=== PATIENT | male | born 1955 | race Caucasian/White ===

== ENCOUNTER 2021-10-13 17:11 | Inpatient (IN) | payer MEDICARE, MEDICAID, SELFPAY ==
--- NOTE | 2020-10-18 21:00 | NUR ---
PATIENT ALERT HAVE BM WE CHANGED THE BED AND CLEAN THE PATIENT ALONG WITH DRESSING AT THE SACRUM WOUND LOOKS HEALING ALL READY ALSO WE APPLY THE MED VITALS SIGNS IN NORMAL LIMITS //DiCaprioRN
[~2021-10-13] VITALS: Ht 167.6 cm; Wt 64.0 kg
[2021-10-13] MEDS: NACL 0.9% 1,000 ML IV SCH (00:05)
[2021-10-13] MEDS: FLUCONAZOLE 200 MG/NS PREMIX 100 ML IV SCH (00:30)
[2021-10-13 17:13] VITALS: BP 43/16
[2021-10-13] MEDS ORDERED: NOREPINEPHRINE 4 MG/4 ML VIAL IV ONE ×2 (17:13→20:20)
[2021-10-13] MEDS ORDERED: NOREPINEPHRINE 4 MG in DEXTROSE 5% 250 ML IV ONE (17:15)
[2021-10-13] MEDS ORDERED: cefTRIAXone 1,000 MG in DEXT 5% MINI-BAG PLUS 50 ML IV ONE (17:15)
[2021-10-13] MEDS ORDERED: NACL 0.9% 1,000 ML IV SCH (17:15)
--- NOTE | 2021-10-13 17:30 | NUR ---
[place] [facility] [place]. on arrival pt trach to vent being bagged bvm. breathing agonal. skin cold and dry. bp in 60s received 2 push dose epis in field cryptanalyst. io to bilateral legs, iv to right thumb #[id number].
--- NOTE | 2021-10-13 17:35 | NUR ---
PT AMBULANCE GURNEY TO ER BED 3 VIA DRAW SHEET AND PLACED ON V/S MONITOR
--- NOTE | 2021-10-13 17:51 | NUR ---
CENTRAL LINE SET UP AT BED SIDE ERMD NOTIFIED.
[2021-10-13 18:00] VITALS: BP 60/28
--- NOTE | 2021-10-13 18:09 | NUR ---
dr thompson at bedside for central line placement.
[2021-10-13 18:21] LABS: WHITE BLOOD COUNT (AUTO) 22.7 K/uL (4.8-10.8)
[2021-10-13] MEDS ORDERED: cefTRIAXone 1,000 MG VIAL ONE (18:30)
[2021-10-13] MEDS: NOREPINEPHRINE 8 MG in DEXTROSE 5% 250 ML IV PRN ×2 (18:37→23:40)
--- NOTE | 2021-10-13 18:43 | NUR ---
right femoral triple lumen central line placed by dr jay martinez to use by .
[2021-10-13 18:47] VITALS: BP 87/45
[2021-10-13 18:53] LABS: ALBUMIN 1.9 g/dL (3.4-5.0); ANION GAP 10.4 (8-16); CARBON DIOXIDE 33.5 mmol/L (21-32); CREATININE 0.6 mg/dL (0.6-1.3); POTASSIUM 4.9 mmol/L (3.5-5.1)
[2021-10-13 19:07] LABS: TOTAL BILIRUBIN 0.4 mg/dL (0.0-1.0)
[2021-10-13] MEDS ORDERED: NACL 0.9% 1,000 ML IV ONE ×2 (19:10→19:20)
[2021-10-13 19:19] LABS: HEMATOCRIT 25.5 % (36-52); HEMOGLOBIN 8.3 g/dL (12.0-18.0); MEAN CORPUSCULAR HEMOGLOBIN 32 pg (27-31); MEAN CORPUSCULAR HGB CONC 33 g/dL (33-37); MEAN CORPUSCULAR VOLUME 97.6 fL (80-94); PLATELET COUNT (AUTO) 399 K/uL (140-450); RED BLOOD CELL COUNT(AUTO) 2.61 MIL/uL (4.20-6.10)
--- NOTE | 2021-10-13 19:20 | NUR ---
report given to deondre WOODS
[2021-10-13] MEDS ORDERED: VASOPRESSIN 20 UNITS/ML VIAL ONE (19:23)
[2021-10-13] MEDS: VASOPRESSIN 20 UNITS in NACL 0.9% 250 ML IV SCH (19:36)
[2021-10-13 19:40] LABS: LYMPHOCYTES % (MANUAL) 2 % (20-46); METAMYELOCYTES % 1 % (0-0); MONOCYTES % (MANUAL) 3 % (5-12); MYELOCYTES % 1 % (0-0)
--- NOTE | 2021-10-13 19:46 | NUR ---
REPORT RECEIVED FROM PEGGY REDMOND FOR CONTINUITY OF PT CARE AT THIS TIME.
--- NOTE | 2021-10-13 19:50 | NUR ---
PT LAYING SUPINE IN BED W HOB ELEVATED. BED LOCKED IN LOWEST POSITION W X2 SIDERAILS UP FOR PT SAFETY. PT EYES CLOSED, GCS 4, PT TRACH TO VENT W SETTINGS OF A/C PV, 100% FiO2, 20RR, PEEP, 5, PT VSS ON LEVO AT 30MCG/MIN, AND VASSOPRESSIN AT 0.01UNITS/MIN. PT HAS G-TUBE AND NJ CATH DRAINING TO GRAVITY. IV ACCES TO R HAND, HAS A R FEM LINE, BL IOs. CONNECTED TO MONITOR. WILL CONTINUE TO MONITOR.
[2021-10-13 20:14] LABS: BILIRUBIN,URINE NEGATIVE (NEGATIVE); BLOOD, URINE 3+ (NEGATIVE); COLOR,URINE YELLOW (YELLOW); LEUKOCYTE ESTERASE ,URINE 1+ (NEGATIVE); NITRITE, URINE NEGATIVE (NEGATIVE); PH,URINE 7.5 (5.0-9.0); UGLUCOSE NEGATIVE (NEGATIVE)
[2021-10-13 20:33] LABS: APPEARANCE,URINE HAZY (CLEAR)
[2021-10-13 20:46] LABS: RBC,URINE >100 /HPF (0-5); YEAST,URINE Many /HPF (None Seen)
--- NOTE | 2021-10-13 21:32 | NUR ---
PT FAMILY AT BEDSIDE.
[2021-10-13] MEDS ORDERED: MAGNESIUM OXIDE 400 MG TAB PO PRN (21:45)
[2021-10-13] MEDS ORDERED: POTASSIUM CHLORIDE 10 MEQ TABER PO PRN (21:45)
[2021-10-13] MEDS ORDERED: HYDROcodone/APAP 5/325 MG 1 TAB TAB PO PRN (21:45)
[2021-10-13] MEDS ORDERED: ONDANSETRON 4 MG/2 ML VIAL IVP PRN (21:45)
[2021-10-13] MEDS ORDERED: ACETAMINOPHEN 325 MG TAB PO PRN (21:45)
[2021-10-13] MEDS ORDERED: LISI-486 GT (21:54)
[2021-10-13] MEDS ORDERED: ASPI-1822 GT (21:54)
[2021-10-13] MEDS ORDERED: ASCO500T95 GT (21:54)
[2021-10-13] MEDS ORDERED: MULT-1328 GT (21:54)
[2021-10-13] MEDS ORDERED: LOV40I SUBQ (21:54)
[2021-10-13] MEDS ORDERED: DOCU-299 GT (21:54)
[2021-10-13] MEDS ORDERED: METO25TE2 GT (21:54)
[2021-10-13] MEDS ORDERED: [UNRECOGNIZED DRUG - OTHER] (21:54)
[2021-10-13] MEDS ORDERED: HYDR-4004 GT (21:54)
[2021-10-13] MEDS ORDERED: OMEP20EC11 GT (21:54)
[2021-10-13] MEDS ORDERED: PROSTAT GT (21:54)
[2021-10-13] MEDS ORDERED: INSU-1163 SQ (21:58)
[2021-10-13] MEDS ORDERED: VANCOMYCIN 1,000 MG in DEXTROSE 5% 250 ML IV ONE (22:35)
[2021-10-13] MEDS ORDERED: MAG SULF 2000 MG/WATER PREMIX 50 ML IV ONE (22:35)
--- NOTE | 2021-10-13 22:46 | NUR ---
ACCOMPANIED PT TO CT AND BACK
--- NOTE | 2021-10-13 23:06 | NUR ---
PT TRANSPORTED TO CT AND BACK TO ED3 W/ NO ADVERSE EVENTS PT TOLERATED TRANSPORT WELL PT HAS PATENT/SECURED PORTEX 7 TRACH VENT ALARMS REMAIN ON AND AUDIBLE VENT WAS PLUGGED BACK INTO RED OUTLET AMBU WAS PLACED AT BEDSIDE WILL CONTINUE TO MONITOR
--- NOTE | 2021-10-13 23:19 | NUR ---
SPOKE TO TO PROVIDE UPDATE ON PT STATUS. PER CHANGE PLACE PT ON VASSOPRESSIN AT 0.04 MD AWARE OF CURRENT PT BP OF 110/61. PER CHANGE TO CHANGE ZOSYN TO Q8H.
--- NOTE | 2021-10-13 23:25 | NUR ---
Pt report given to bibi mendosa. Transfer of care at this time.
[2021-10-13] MEDS ORDERED: PIPERACILLIN/TAZOBACTAM 3.375 GM in DEXTROSE 5% 50 ML IV SCH (23:30)
--- NOTE | 2021-10-13 23:45 | NUR ---
Patient will be admitted to care of . Admited to ICU 7. Will go to roomICU 7. Belongings list completed. Report to PEGGY REDMOND.
[2021-10-14] VITALS (29 sets, daily range): BP systolic 91–149; BP diastolic 8–83
[2021-10-14] MEDS ORDERED: PIPERACILLIN/TAZOBACTAM 3.375 GM in DEXTROSE 5% 50 ML IV SCH ×2
--- NOTE | 2021-10-14 | NUR ---
RECEIVED TELEPHONE REPORT FROM STEAM SERVICE INSPECTOR MANGO. PT IS A 66-M BROUGHT IN FROM [facility] [place] TO THE ED FOR ALOC AND HYPOTENSION. A/O X4, ABLE TO FOLLOW SIMPLE COMMANDS, NOD YES AND NO, AND MOUTH WORDS. TRACH TO VENT PRESSURE CONTROL PRESSURE @26, PEEP @5, RATE @20, FIO2 @100%. R FEMORAL CENTRAL LINE ALREADY IN PLACE, PATENT AND INTACT, INFUSING LEVO @30 MCG/KG/MIN AND VASOPRESSIN @0.04 UNITS/MIN. G-TUBE IN PLACE, DRESSING DRY AND INTACT, CLAMPED.FC ALREADY IN PLACE AND DRAINING TO GRAVITY. SKIN NOT INTACT, SKIN TEAR PRESENT IN SACRAL AREA. INITIAL ASSESSMENT COMPLETED. SAFETY MEASURES IN PLACE. WILL CONTINUE TO MONITOR.
--- NOTE | 2021-10-14 00:10 | NUR ---
PT TRANSPORTED FROM ED 3 TO ICU 7 W/ NO ADVERSE EVENTS PT TOLERATED TRANSPORT WELL VENT PLUGGED INTO RED OUTLET NO CHANGES TO VENT AT THIS TIME AMBU PLACED AT BEDSIDE WILL CONTINUE TO MONITOR
--- NOTE | 2021-10-14 00:30 | NUR ---
SBP ELEVATED IN 140s. LEVO TITRATED DOWN TO 28 MCG
[2021-10-14] MEDS ORDERED: PIPERACILLIN/TAZOBACTAM 3.375 GM VIAL IV ONE ×2 (01:02→06:03)
[2021-10-14] MEDS ORDERED: VANCOMYCIN 1,000 MG VIAL ONE (01:03)
[2021-10-14] MEDS ORDERED: NOREPINEPHRINE 4 MG/4 ML VIAL IV ONE ×2 (01:13→07:52)
[2021-10-14] MEDS: PIPERACILLIN/TAZOBACTAM 3.375 GM in DEXTROSE 5% 50 ML IV SCH ×5 (01:30→23:48)
[2021-10-14] MEDS: NOREPINEPHRINE 8 MG in DEXTROSE 5% 250 ML IV PRN ×2 (01:45→08:30)
--- NOTE | 2021-10-14 01:45 | NUR ---
SBP ELEVATED IN 130s. LEVO TITRATED DOWN TO 26 MCG.
--- NOTE | 2021-10-14 02:30 | NUR ---
SBP OBSERVED IN 130s. LEVOPHED TITRATED DOWN TO 24 MCG.
--- NOTE | 2021-10-14 03:30 | NUR ---
SBP OBSERVED IN 130s. LEVOPHED TITRATED DOWN TO 22 MCG.
--- NOTE | 2021-10-14 04:30 | NUR ---
MORNING CARE, ORAL CARE, AND ZHANG CARE GIVEN.
[2021-10-14] MEDS: HYDROCORTISONE NA SUCC 100 MG/2 ML VIAL IV SCH ×3 (05:00→20:47)
[2021-10-14] MEDS: VASOPRESSIN 20 UNITS in NACL 0.9% 250 ML IV SCH ×2 (05:30→16:30)
[2021-10-14] MEDS ORDERED: VASOPRESSIN 20 UNITS/ML VIAL ONE (05:32)
--- NOTE | 2021-10-14 05:35 | NUR ---
RT AT BEDSIDE; COLLECTED SPUTUM CULTURE AND RAN TO LAB.
[2021-10-14 06:49] LABS: ALBUMIN 1.7 g/dL (3.4-5.0); ANION GAP 11.7 (8-16); CARBON DIOXIDE 29.7 mmol/L (21-32); CREATININE 0.6 mg/dL (0.6-1.3); MAGNESIUM 1.2 mg/dL (1.8-2.4); POTASSIUM 3.4 mmol/L (3.5-5.1); TOTAL BILIRUBIN 0.3 mg/dL (0.0-1.0)
[2021-10-14 06:59] LABS: BASOPHILS % (AUTO) 0.1 % (0.0-2.0); LYMPHOCYTES # (AUTO) 0.7 K/uL (2.0-11.5); LYMPHOCYTES % (AUTO) 3.6 % (20.5-51.1); MEAN CORPUSCULAR HEMOGLOBIN 31 pg (27-31); MEAN CORPUSCULAR HGB CONC 33 g/dL (33-37); MEAN CORPUSCULAR VOLUME 95.3 fL (80-94); MONOCYTES # (AUTO) 0.7 K/uL (0.8-1.0); MONOCYTES % (AUTO) 3.6 % (1.7-9.3); NEUTROPHILS # (AUTO) 18.4 K/uL (1.8-7.7); NEUTROPHILS % (AUTO) 92.7 % (42.2-75.2); PLATELET COUNT (AUTO) 345 K/uL (140-450); RED BLOOD CELL COUNT(AUTO) 1.93 MIL/uL (4.20-6.10); RED CELL DISTRIBUTION WIDTH 16.6 % (11.6-13.7); WHITE BLOOD COUNT (AUTO) 19.8 K/uL (4.8-10.8)
[2021-10-14 07:14] LABS: HEMATOCRIT 18.3 % (36-52)
--- NOTE | 2021-10-14 07:18 | NUR ---
REPORT GIVEN TO DAYSHIFT RN FOR CONTINUITY OF CARE
--- NOTE | 2021-10-14 07:30 | NUR ---
RECEIVED REPORT FROM CONTRACT IMPLEMENTATION ANALYST. PT IN BED WITH HOB ELEVATED. ABLE TO FOLLOW SIMPLE COMMANDS, NOD YES AND NO, AND MOUTH WORDS. TRACH TO VENT PRESSURE CONTROL PRESSURE @26, PEEP @5, RATE @20, FIO2 @100%. R FEMORAL CENTRAL LINE IN PLACE, PATENT AND INTACT, INFUSING LEVO @22 MCG/KG/MIN AND VASOPRESSIN @0.04 UNITS/MIN. G-TUBE IN PLACE, DRESSING DRY AND INTACT, CLAMPED. FC IN PLACE AND DRAINING TO GRAVITY. SKIN NOT INTACT, SKIN TEAR PRESENT IN SACRAL AREA. SAFETY MEASURES IN PLACE. WILL CONTINUE TO MONITOR.
--- NOTE | 2021-10-14 07:30 | NUR ---
CALLED DR SIMPSON, REPORTED CRITICAL LAB HGB 6.0, HCT 18.3, ORDERED 2 UNITS PRBC
--- NOTE | 2021-10-14 07:55 | NUR ---
RECEIVED ON A [employer] R860 VENTILATOR PLUGGED INTO RED OUTLET TOLERATING WELL WITHOUT ADVERSE REACTIONS NOTED TO A PORTEX DFEN #7 AIRWAY SECURED WITH A BELINDA TRACH TIE CUFF PRESSURE CHECKED NOTED AMBU BAG AT BEDSIDE STABLE GOOD CHEST RISE DEEP TRACHEAL SUCTION FOR SMALL THIN YELLOW SECRETIONS AIRWAY PATENT Addendum: 10/14/21 at 1046 by Yassine Gamez RT VTe +600 ml; 8ml/kg = 510ml; DECREASED Pinsp [id number] NOW LOW 550'S; SATURATION 99% ON FIO2 OF 50% PEEP 5cmH2O TITRATED FIO2 TO 40%; MELLO/RN NOTIFIED
--- NOTE | 2021-10-14 09:00 | NUR ---
TEMP 100.2, COOLING MEASURES RENDERED, HEPARIN HELD D/T SUSPECTED BLEEDING, DR SIMPSON AWARE
--- NOTE | 2021-10-14 09:35 | NUR ---
PATIENT HAS BEEN SCREENED AND CATEGORIZED HIGH NUTRITION RISK. PATIENT WILL BE SEEN WITHIN 1-2 DAYS OF ADMISSION. 10/14/21-10/15/21 RECEIVED CONSULT AND REFERRAL FOR PRESSURE INJURY AND TUBE FEEDING OANH TODD RD
[2021-10-14] MEDS: NACL 0.9% 1,000 ML IV SCH ×2 (10:30→21:37)
--- NOTE | 2021-10-14 11:00 | NUR ---
SEEN AND EXAMINED BY WOUND CARE NURSE
--- NOTE | 2021-10-14 11:06 | NUR ---
PER MELLO/RN DR. DEE SIMPSON AT BEDSIDE CHANGED VENTILATOR MECHANICAL RATE TO 18 BPM GOOD CHEST RISE FOREMENTIONED RN AT BEDSIDE SUCTIONING PATIENT FOR LARGE THICK YELLOW/BLODD TINGE SECRETIONS AIRWAY PATENT
--- NOTE | 2021-10-14 11:10 | NUR ---
WITH BM X1 SOFT BLACK STOOL, ZHANG CARE DONE
--- NOTE | 2021-10-14 11:55 | NUR ---
WOUND CARE EVALUATION NOTE: SKIN ASSESSMENT DONE WITH PRIMARY RN ON THIS 66 Y/O ADMITTED FROM SNF WITH PRESSURE INJURY TO SACRALCOCCYX, PER RECORD IT WS STAGE 3. PT. WITH TRACH AND PEG. SKIN MOIST. F/C PATENT, INCONTINENT OF BOWEL X1 DURING ASSESSMENT. POC DISCUSSED WITH PRIMARY RN. INTEGUMENTARY: -TRACH AND PEG PER-STOMA SKIN DRY AND CLEAN -MOISTURE ASSOCIATED DERMATITIS TO SCROTAL AND ZHANG-ANAL, SKIN RED AND INTACT -PRESSURE INJURY STAGE 3 TO RIGHT BUTTOCK 3.5X3CM SUPERFICIAL DEPTH, AND LEFT BUTTOCK 1.8X2.2CM SUPERFICIAL DEPTH, BOTH WOUNDS IRREGULAR SHAPE, WOUND BEDS ARE MOIST, NO ODOR, ZHANG-WOUND SKIN DRY AND INTACT RECOMMENDATIONS: -CLEANSE SACRALCOCCYX WOUND WITH NS, PAT DRY, APPLY CALMOSEPTINE CR TO WOUND BED AND COVER WITH FOAM DRESSING QD AND PRN IF SOILING -ZHANG-CARE Q2H AND APPLY HYDRAGUARD TO SCROTAL AND PER-RECTAL SKIN BID AND PRN IF SOILING -TURN AND REPOSITION PATIENT Q 2H -INSPECT SKIN UNDER AND AROUND MEDICAL DEVICES. -ASSESS AND MONITOR SKIN CONDITION DURING POSITION CHANGE -OFFLOAD BILATERAL HEELS BY PLACING PILLOWS UNDER CALVES AT ALL TIMES, UNLESS OTHERWISE CONTRAINDICATED -APPLY HEEL PROTECTORS -MANAGE FRICTION AND SHEAR BY USING LIFT SHEET TO REPOSITION PATIENT -HOB 30 DEGREE TOLERATE -PLEASE FOLLOW RD RECOMMENDATIONS PLEASE NOTIFIED WOUND CARE NURSE FOR ANY CHANGE OF SKIN CONDITION
--- NOTE | 2021-10-14 12:00 | NUR ---
TEMP 99.6, CONTINUE COOLING MEASURES
--- NOTE | 2021-10-14 12:12 | NUR ---
DC PLANNIN YRS OLD MALE PATIENT [place] [facility] [place] DX OF SEPTIC SHOCK. PATIENT HAS A HX OF ALS CHRONIC RESP FAILURE T-V AND HYPOTENSION. ON LEVOPHED AND VASOPRESSIN DRIP AND IV ABX ZOSYN. CONSULTED WITH DAVIS. SPOKE WITH ROSCOE ARIAS AT [facility] SR [phone] REQUESTING THE H&P TO BE FAXED. AWAITING ATTENDING MD TO SEE PATIENT. CM TO FOLLOW Addendum: 10/16/21 at 1136 by Mireya Dominguez RN DC PLANNING: OFF LEVOPHED DRIP , FIO2 30% SEEN BY DAVIS DOWN GRADE TO TELE. POSSIBLE DC BACK [place] [facility]UES[place]. FAXED ALL PAPERWORK TO [facility] WILL ARRANGE TRANSPORT TO PLACE IT WILL CALL. JUANA TO FOLLOW Addendum: 10/16/21 at 1427 by Mireya Dominguez RN DC PLANNING: RECEIVED TRANSPORT AUTH FROM PEPPER ARIAS ROSCOE [id number] ARRANGE TRANSPORT WITH [facility] PL[facility] IT WILL CALL PLS CALL [phone] WHEN PATIENT HAS A DC ORDER. PATIENT CAN GO TO ROOM 2B # TO GIVE REPORT [phone] . [facility] THE [facility] TO FOLLOW Addendum: 10/21/21 at 1647 by Mireya Dominguez RN DC PLANNING: PER PT WILL BE DC TOMORROW [facility] TO FOLLOW
[2021-10-14] MEDS ORDERED: MENTHOL/ZINC OXIDE 113 GM TUBE TP SCH (13:00)
--- NOTE | 2021-10-14 13:47 | NUR ---
10/14/2021 RD INITIAL ASSESSMENT COMPLETED PLEASE REFER TO NUTRITION ASSESSMENT UNDER CARE ACTIVITY FOR ESTIMATED NUTRITIONAL NEEDS. CURRENT TUBE FEED ORDER; VITAL 1.2 @50ML/H FWF 100Q8H. THIS IS PROVIDING 1400 KCALS AND 90 GRAMS OF PRO PER DAY TO MEET 91% ESTIMATED KCALS AND 95% EST PROTEIN NEEDS PER DAY. RECOMMEND: VITAL 1.2 @60ML/HR X 24H FWF 200Q8H. THIS WILL PROVIDE 100% ESTIMATED KCAL AND PROTEIN NEEDS PER DAY. RD SPOKE TO RN, MELLO STATED THE INCREASE IN RATE. RN STATED HE WILL FOLLOW UP RD TO FOLLOW-UP IN 2-3 DAYS PATIENT IS HIGH RISK. REVIEWED BY BENJI LEON RD
--- NOTE | 2021-10-14 13:48 | NUR ---
PT RESTING IN BED, FLACC 0, NO APPARENT DISTRESS
--- NOTE | 2021-10-14 14:22 | NUR ---
RESTING WELL NO DISTRESS NOTED GOOD CHEST RISE DEEP TRACHEAL SUCTION FOR SMALL THIN HAZY WITH BLOOD TINGE PLUS SCATTERED THICK CLOTTED BLOOD AIRWAY PATENT
--- NOTE | 2021-10-14 14:30 | NUR ---
BLOOD TRANSFUSION STARTED, WILL MONITOR V/S Q15
--- NOTE | 2021-10-14 16:00 | NUR ---
PT ASLEEP IN BED, NO SOB, TEMP 99.0, FLACC 0
--- NOTE | 2021-10-14 16:30 | NUR ---
BLOOD TRANSFUSION DONE, NO ADVERSE REACTIONS NOTED
--- NOTE | 2021-10-14 16:40 | NUR ---
2ND UNIT OF PRBC STARTED, WILL MONITOR V/S Q15
--- NOTE | 2021-10-14 17:50 | NUR ---
WITH BM X1 SOFT BLACK STOOL, ZHANG CARE DONE, WOUND CARE DONE, TURNED AND REPOSITIONED
[2021-10-14] MEDS ORDERED: DEXTROSE 50% 50 ML SYR IVP PRN (18:00)
--- NOTE | 2021-10-14 18:15 | NUR ---
BLOOD TRANSFUSION DONE, NO ADVERSE REACTIONS NOTED
[2021-10-14] MEDS: BLOOD GLUCOSE MONITORING 1 DEV DEV FS SCH ×2 (18:18→23:48)
[2021-10-14] MEDS: INSULIN LISPRO SLIDING SCALE 100 UNITS/ML VIAL SUBQ PRN ×2 (18:18→23:51)
--- NOTE | 2021-10-14 19:24 | NUR ---
PATIENT ALERT NOT COMPLAINING OF PAIN VITALS SIGNS IN NORMAL LIMITS SR 76 ON MONITOR TRACH INTACT PC R 18 FI02 35 % PEEP 5 //DiCaprio RN
[2021-10-14 19:26] LABS: BASOPHILS % (AUTO) 0.1 % (0.0-2.0); HEMATOCRIT 23.4 % (36-52); HEMOGLOBIN 7.9 g/dL (12.0-18.0); LYMPHOCYTES # (AUTO) 0.4 K/uL (2.0-11.5); LYMPHOCYTES % (AUTO) 2.8 % (20.5-51.1); MEAN CORPUSCULAR HEMOGLOBIN 31 pg (27-31); MEAN CORPUSCULAR HGB CONC 34 g/dL (33-37); MEAN CORPUSCULAR VOLUME 91.9 fL (80-94); MONOCYTES # (AUTO) 0.4 K/uL (0.8-1.0); MONOCYTES % (AUTO) 2.6 % (1.7-9.3); NEUTROPHILS # (AUTO) 14.8 K/uL (1.8-7.7); NEUTROPHILS % (AUTO) 94.5 % (42.2-75.2); PLATELET COUNT (AUTO) 259 K/uL (140-450); RED BLOOD CELL COUNT(AUTO) 2.54 MIL/uL (4.20-6.10); RED CELL DISTRIBUTION WIDTH 15.3 % (11.6-13.7); WHITE BLOOD COUNT (AUTO) 15.7 K/uL (4.8-10.8)
[2021-10-14] MEDS: MORPHINE SULFATE 4 MG/ML SYR IVP PRN (20:47)
[2021-10-14] MEDS: FLUCONAZOLE 200 MG/NS PREMIX 100 ML IV SCH (21:37)
[2021-10-14] MEDS: HYDRAGUARD CREAM TP SCH (21:38)
[2021-10-15] VITALS (29 sets, daily range): BP systolic 93–136; BP diastolic 6–78
[2021-10-15] MEDS ORDERED: NOREPINEPHRINE 4 MG/4 ML VIAL IV ONE (00:51)
--- NOTE | 2021-10-15 00:53 | NUR ---
THE SET PIP WAS TITRATED DOWN FROM [id number] TO 18 CMH2O DUE TO PT GETTING AN EXHALE TIDAL VOLUME IN THE 700S. PT IS NOW GETTING AN EXHALE VOLUME OF 550-600 AT THIS TIME. PT WAS ALSO TITRATED DOWN FROM 35% FIO2 TO 30% DUE TO PT SP02 100%. PT TOLERATED CHANGES WELL AT THIS TIME.
[2021-10-15] MEDS: NOREPINEPHRINE 8 MG in DEXTROSE 5% 250 ML IV PRN (00:57)
--- NOTE | 2021-10-15 03:16 | NUR ---
PATIENT ALERT BATH AND ORAL CARE WAS PROVIDED PATIENT NOW COMFORTABLE NOT COMPLAINING OF PAIN AT THIS TIME VITALS SIGNS IN NORMAL LIMITS //DiCaprio RN
[2021-10-15] MEDS: HYDROCORTISONE NA SUCC 100 MG/2 ML VIAL IV SCH ×3 (05:51→20:50)
[2021-10-15] MEDS: PIPERACILLIN/TAZOBACTAM 3.375 GM in DEXTROSE 5% 50 ML IV SCH ×3 (05:52→18:00)
[2021-10-15 05:55] LABS: BASOPHILS % (AUTO) 0.1 % (0.0-2.0); HEMATOCRIT 22.2 % (36-52); HEMOGLOBIN 7.4 g/dL (12.0-18.0); LYMPHOCYTES # (AUTO) 0.6 K/uL (2.0-11.5); LYMPHOCYTES % (AUTO) 3.2 % (20.5-51.1); MEAN CORPUSCULAR HEMOGLOBIN 31 pg (27-31); MEAN CORPUSCULAR HGB CONC 34 g/dL (33-37); MEAN CORPUSCULAR VOLUME 92.3 fL (80-94); MONOCYTES # (AUTO) 0.5 K/uL (0.8-1.0); MONOCYTES % (AUTO) 2.8 % (1.7-9.3); NEUTROPHILS # (AUTO) 16.2 K/uL (1.8-7.7); NEUTROPHILS % (AUTO) 93.9 % (42.2-75.2); PLATELET COUNT (AUTO) 252 K/uL (140-450); RED BLOOD CELL COUNT(AUTO) 2.41 MIL/uL (4.20-6.10); RED CELL DISTRIBUTION WIDTH 15.6 % (11.6-13.7); WHITE BLOOD COUNT (AUTO) 17.3 K/uL (4.8-10.8)
[2021-10-15] MEDS: BLOOD GLUCOSE MONITORING 1 DEV DEV FS SCH ×4 (06:02→23:27)
[2021-10-15 06:44] LABS: ALBUMIN 1.8 g/dL (3.4-5.0); ANION GAP 10.4 (8-16); CARBON DIOXIDE 28.6 mmol/L (21-32); CREATININE 0.4 mg/dL (0.6-1.3); MAGNESIUM 1.5 mg/dL (1.8-2.4); TOTAL BILIRUBIN 0.5 mg/dL (0.0-1.0)
--- NOTE | 2021-10-15 06:47 | NUR ---
PATIENT ALERT NOT COMPLAINING OF PAIN VITALS SIGNS IN NORMAL LIMITS GET ORAL CARE AGAIN ASKING FOR WATER BECAUSE FEEL DRY MOUTH //DiCaprio RN
--- NOTE | 2021-10-15 07:24 | NUR ---
RECEIVED ON A [employer] R860 VENTILATOR PLUGGED INT RED OUT Addendum: 10/15/21 at 1018 by Yassine Gamez RT RED OUTLET TOLERATING WITHOUT ADVERSE REACTIONS NOTED TO A PORTEX DFEN #7 AIRWAY SECURED WITH A BELINDA TRACH TIE CUFF PRESSURE CHECKED NOTED AMBU BAG AT BEDSIDE LOC AWAKE AND ALERT "MOUTHING WORDS" EQUAL CHEST RISE DEEP TRACHEAL SUCTION FOR SMALL SCATTERED THIN TO THICK BLOOD CLOTS AIRWAY PATENT PATIENT CANDIDATE FOR PRVC OR AC MODE LEAD SOFTWARE TESTER TO ATTEMPT A LATER TIME
--- NOTE | 2021-10-15 07:30 | NUR ---
PLACED ON PRVC MODE NOTED TOLERATING WELL WITHOUT COMPLICATIONS NOTED GOOD CHEST RISE AIRWAY PATENT DRIER TAKE OFF TENDER TO MONITOR MELLO/RN NOTIFIED
--- NOTE | 2021-10-15 07:30 | NUR ---
RECEIVED REPORT FROM WINDERMAN. PT IN BED WITH HOB ELEVATED. ABLE TO FOLLOW SIMPLE COMMANDS, NOD YES AND NO, AND MOUTH WORDS. TRACH TO VENT ACPRVC PEEP @5, RATE @18, FIO2 @30%, TV @450. R FEMORAL CENTRAL LINE IN PLACE, PATENT AND INTACT, INFUSING LEVO @3 MCG/KG/MIN, NS @ 80ML/HR. G-TUBE IN PLACE, DRESSING DRY AND INTACT. FC IN PLACE AND DRAINING TO GRAVITY. SKIN NOT INTACT, HEALING STAGE 3 IN SACRAL AREA. SAFETY MEASURES IN PLACE. WILL CONTINUE TO MONITOR.
[2021-10-15] MEDS ORDERED: POTASSIUM CHLORIDE 20% 40 MEQ/15 ML UDC PO PRN (08:20)
--- NOTE | 2021-10-15 09:15 | NUR ---
DUE MEDS GIVEN. ORAL CARE AND NJ CARE DONE. WITH BM X1, ZHANG CARED ONE
[2021-10-15] MEDS: MAG SULF 2000 MG/WATER PREMIX 50 ML IV PRN (09:23)
[2021-10-15] MEDS: KCL 20 MEQ/WATER INJ PREMIX 200 ML IV PRN (09:24)
--- NOTE | 2021-10-15 10:10 | NUR ---
SEEN AND EXAMINED BY DR SIMPSON, NEW ORDERS NOTE AND CARRIED OUT
[2021-10-15] MEDS ORDERED: VANCOMYCIN PER PHARMACY MC PRN (10:15)
[2021-10-15] MEDS: VANCOMYCIN 1,000 MG in DEXTROSE 5% 250 ML IV SCH ×2 (10:56→23:21)
--- NOTE | 2021-10-15 11:00 | NUR ---
PT WITH C/O BACK PAIN 02/12, REPOSITIONING INEFFECTIVE. NORCO GIVEN ORDERED
--- NOTE | 2021-10-15 11:10 | NUR ---
NO APPARENT DISTRESS NOTED TOLERATING PRVC MODE NOTED EQUAL CHEST RISE DEEP TRACHEAL SUCTION FOR COPIOUS SEMI THICK YELLOW WITH BLOOD TINGE SECRETIONS AIRWAY PATENT
[2021-10-15] MEDS: NACL 0.9% 1,000 ML IV SCH ×2 (11:17→23:49)
[2021-10-15] MEDS: INSULIN LISPRO SLIDING SCALE 100 UNITS/ML VIAL SUBQ PRN ×3 (11:52→23:27)
[2021-10-15] MEDS: MENTHOL/ZINC OXIDE 113 GM TUBE TP SCH (13:21)
[2021-10-15] MEDS: HYDRAGUARD CREAM TP SCH (13:21)
--- NOTE | 2021-10-15 14:00 | NUR ---
FAMILY VISITING AT BEDSIDE, UPDATE GIVEN
--- NOTE | 2021-10-15 16:33 | NUR ---
WITH X 1 SMALL BM, ZHANG CARE DONE, TURNED AND REPOSITIONED
--- NOTE | 2021-10-15 17:10 | NUR ---
LEVOPHED TITRATED OFF. WILL MONITOR BP
--- NOTE | 2021-10-15 18:33 | NUR ---
BP 115/63, HR 75, NO APPARENT DISTRESS, NO C/O PAIN
--- NOTE | 2021-10-15 19:35 | NUR ---
RECEIVED BEDSIDE REPORT FROM DAY SHIFT NURSE. PATIENT IS TRACH TO VENT, ABLE TO FOLLOW COMMANDS AND COMMUNICATE BY MOUTHING WORDS. SKIN IS WARM AND DRY. RIGHT FEMORAL LINE NOTED INFUSING NS AT 80ML/HR. VENT SETTING AC RT 15 V 450 FIO2 30 PEEP 5. G-TUBE NOTED RUNNING AT 60ML/HR. NJ CATHETER DRAINING YELLOW URINE. PLAN OF CARE UPDATED. ALL SAFETY MEASURES IN PLACE. BED IS AT LOW POSITION. CALL LIGHT WITHIN REACH. WILL CONTINUE TO MONITOR.
[2021-10-15] MEDS: FLUCONAZOLE 200 MG/NS PREMIX 100 ML IV SCH (20:50)
--- NOTE | 2021-10-15 21:05 | NUR ---
PATIENT COMPLAINED OF BACK PAIN 04/14. PRN PAIN MEDS GIVEN PER ORDER. WILL CONTINUE TO MONITOR
[2021-10-15] MEDS: MORPHINE SULFATE 4 MG/ML SYR IVP PRN (21:06)
--- NOTE | 2021-10-15 21:15 | NUR ---
ALL SCHEDULED MEDS WERE GIVEN PER ORDER. WILL CONTINUE TO MONITOR
--- NOTE | 2021-10-15 22:13 | NUR ---
PROVIDE ORAL CARE AND SUCTION PATIENT
[2021-10-16] VITALS (32 sets, daily range): BP systolic 97–133; BP diastolic 40–79
[2021-10-16] MEDS: PIPERACILLIN/TAZOBACTAM 3.375 GM in DEXTROSE 5% 50 ML IV SCH ×4 (00:45→18:30)
[2021-10-16] MEDS: HYDRAGUARD CREAM TP SCH ×2 (00:47→13:07)
--- NOTE | 2021-10-16 01:22 | NUR ---
WOUND CARE DONE
--- NOTE | 2021-10-16 02:00 | NUR ---
ORAL CARE PROVIDED
[2021-10-16] MEDS: HYDROCORTISONE NA SUCC 100 MG/2 ML VIAL IV SCH ×2 (04:14→13:07)
--- NOTE | 2021-10-16 04:50 | NUR ---
AM CARE PROVIDED.
[2021-10-16] MEDS: INSULIN LISPRO SLIDING SCALE 100 UNITS/ML VIAL SUBQ PRN ×2 (05:32→18:00)
[2021-10-16] MEDS: BLOOD GLUCOSE MONITORING 1 DEV DEV FS SCH ×3 (05:32→18:00)
[2021-10-16 06:08] LABS: BASOPHILS % (AUTO) 0.1 % (0.0-2.0); HEMATOCRIT 22.7 % (36-52); HEMOGLOBIN 7.6 g/dL (12.0-18.0); LYMPHOCYTES # (AUTO) 0.5 K/uL (2.0-11.5); LYMPHOCYTES % (AUTO) 5.9 % (20.5-51.1); MEAN CORPUSCULAR HEMOGLOBIN 32 pg (27-31); MEAN CORPUSCULAR HGB CONC 34 g/dL (33-37); MEAN CORPUSCULAR VOLUME 93.9 fL (80-94); MONOCYTES # (AUTO) 0.4 K/uL (0.8-1.0); MONOCYTES % (AUTO) 3.8 % (1.7-9.3); NEUTROPHILS # (AUTO) 8.4 K/uL (1.8-7.7); NEUTROPHILS % (AUTO) 90.2 % (42.2-75.2); PLATELET COUNT (AUTO) 234 K/uL (140-450); RED BLOOD CELL COUNT(AUTO) 2.42 MIL/uL (4.20-6.10); RED CELL DISTRIBUTION WIDTH 16.1 % (11.6-13.7); WHITE BLOOD COUNT (AUTO) 9.3 K/uL (4.8-10.8)
[2021-10-16 06:19] LABS: ALBUMIN 1.7 g/dL (3.4-5.0); ANION GAP 10.3 (8-16); CREATININE 0.3 mg/dL (0.6-1.3); POTASSIUM 3.3 mmol/L (3.5-5.1); TOTAL BILIRUBIN 0.4 mg/dL (0.0-1.0)
[2021-10-16 06:29] LABS: MAGNESIUM 1.7 mg/dL (1.8-2.4)
--- NOTE | 2021-10-16 07:10 | NUR ---
ENDORSED PATIENT TO DAY SHIFT NURSE FOR CONTINUITY OF CARE
--- NOTE | 2021-10-16 07:30 | NUR ---
RECEIVED REPORT FROM POWER TRANSFORMER REPAIRER. PT IN BED WITH HOB ELEVATED. ABLE TO FOLLOW SIMPLE COMMANDS, NOD YES AND NO, AND MOUTH WORDS. TRACH TO VENT ACPRVC PEEP @5, RATE @18, FIO2 @30%. R FEMORAL CENTRAL LINE IN PLACE, PATENT AND INTACT, INFUSING NS AT 80ML/HR. G-TUBE IN PLACE, DRESSING DRY AND INTACT, CONNECTED TO TF. FC IN PLACE AND DRAINING TO GRAVITY. SKIN NOT INTACT, REFER TO SKIN ASSESSMENT. SAFETY MEASURES IN PLACE. WILL CONTINUE TO MONITOR.
--- NOTE | 2021-10-16 08:40 | NUR ---
DUE MEDS GIVEN. ORAL CARE AND NJ CARE DONE. WITH DARK TARRY STOOL X1, ZHANG CARE DONE
[2021-10-16] MEDS ORDERED: FAMOTIDINE 20 MG TAB GT SCH (09:00)
--- NOTE | 2021-10-16 09:00 | NUR ---
SEEN AND EXAMINED BY DR SIMPSON, ORDERS NOTED AND CARRIED OUT
[2021-10-16] MEDS: KCL 20 MEQ/WATER INJ PREMIX 200 ML IV PRN (09:17)
[2021-10-16] MEDS: MAG SULF 2000 MG/WATER PREMIX 50 ML IV PRN (09:17)
--- NOTE | 2021-10-16 11:50 | NUR ---
SBP CONSISTENTLY 80-90, WILL NOTIFY
[2021-10-16] MEDS ORDERED: PANTOPRAZOLE 40 MG INJ VIAL IVP SCH ×2 (11:55→21:00)
[2021-10-16] MEDS: VANCOMYCIN HCL 1.25 GM in DEXTROSE 5% 250 ML IV SCH (12:00)
--- NOTE | 2021-10-16 12:00 | NUR ---
COPIOUS DARK TARRY STOOL, AND BLOOD CLOTS AND SOME DARK RED BLOOD UPON ASPIRATION OF GT NOTED. DR SIMPSON NOTIFIED, ORDERED 500ML NS IV BOLUS, STAT CBC, AND PROTONIX 40MG IVP DAILY
--- NOTE | 2021-10-16 12:15 | NUR ---
ZHANG CARE DONE, TURNED AND REPOSITIONED
[2021-10-16] MEDS: NACL 0.9% 1,000 ML IV SCH (13:07)
[2021-10-16] MEDS: MENTHOL/ZINC OXIDE 113 GM TUBE TP SCH (13:07)
[2021-10-16 13:27] LABS: MEAN CORPUSCULAR HEMOGLOBIN 32 pg (27-31); MEAN CORPUSCULAR HGB CONC 33 g/dL (33-37); MEAN CORPUSCULAR VOLUME 95.7 fL (80-94); PLATELET COUNT (AUTO) 290 K/uL (140-450); RED BLOOD CELL COUNT(AUTO) 2.05 MIL/uL (4.20-6.10); RED CELL DISTRIBUTION WIDTH 16.2 % (11.6-13.7); WHITE BLOOD COUNT (AUTO) 16.7 K/uL (4.8-10.8)
[2021-10-16 14:09] LABS: HEMATOCRIT 19.7 % (36-52); HEMOGLOBIN 6.5 g/dL (12.0-18.0)
--- NOTE | 2021-10-16 14:14 | NUR ---
CALLED DR SIMPSON FOR CRITICAL LABS. HGB 6.5 HCT 19.7, ORDERED [address] SIMPSON WILL NOTIFY DR SEQUEIRA TO GET GI ON THE CASE
[2021-10-16 14:37] LABS: LYMPHOCYTES % (MANUAL) 4 % (20-46); MONOCYTES % (MANUAL) 3 % (5-12)
[2021-10-16 14:38] LABS: BASOPHILS % (MANUAL) 0 % (0-2); BLASTS, MANUAL % 0 % (0-0); EOSINOPHILS % (MANUAL) 0 % (0-4); METAMYELOCYTES % 0 % (0-0); MYELOCYTES % 0 % (0-0); OTHER CELLS,MANUAL % 0 (0-0); PROMYELOCYTES % 0 % (0-0)
--- NOTE | 2021-10-16 14:50 | NUR ---
WITH ANOTHER EPISODE OF COPIOUS AMOUNT OF DARK RED STOOL, ZHANG CARE DONE. RECTAL TUBE INSERTED
--- NOTE | 2021-10-16 17:38 | NUR ---
10/16/21 RD FOLLOW UP COMPLETED PLEASE REFER TO NUTRITION ASSESSMENT UNDER CARE ACTIVITY FOR ESTIMATED NUTRITIONAL NEEDS. 1. RECOMMEND GLUCERNA 1.2 WITH A GOAL RATE OF 60 ML/HR -FWF: 200 ML Q6H OR PER MD -START AT 10 ML/HR AND INCREASE BY 10 ML Q4H TOLERATED -WILL PROVIDE 1728 KCAL AND 86.4 GM PROTEIN, MEETING 90% ESTIMATED KCALS AND 100% EST PROTEIN NEEDS PER DAY. 2. RECOMMEND JENSEN BID PER RD PROTOCOL. 3. RD TO FOLLOW-UP IN 2-3 DAYS PATIENT IS HIGH RISK. ROC POWELL RD
--- NOTE | 2021-10-16 18:50 | NUR ---
WITH MORE EPISODES OF COPIOUS DARK RED STOOL. CALLED DR GILLIAM ORDERED TO [place] PROTONIX TO 40MG IVP BID, OBTAIN CONSENT FOR EGD. FAMILY NOTIFIED AND AGREED TO PLAN OF CARE
--- NOTE | 2021-10-16 19:14 | NUR ---
PER LAB, NO PRBC AVAILABLE AT THIS TIME
[2021-10-16] MEDS ORDERED: HYDROCORTISONE NA SUCC 100 MG/2 ML VIAL IV SCH (21:00)
[2021-10-16] MEDS: FLUCONAZOLE 200 MG/NS PREMIX 100 ML IV SCH (21:45)
[2021-10-16] MEDS: methylPREDNISolone SS 40 MG/ML VIAL IVP SCH (21:46)
[2021-10-17] VITALS (29 sets, daily range): BP systolic 92–163; BP diastolic 42–84
[2021-10-17] MEDS: VANCOMYCIN HCL 1.25 GM in DEXTROSE 5% 250 ML IV SCH ×2 (00:52→12:55)
[2021-10-17] MEDS: PIPERACILLIN/TAZOBACTAM 3.375 GM in DEXTROSE 5% 50 ML IV SCH ×5 (00:53→23:30)
[2021-10-17] MEDS: NACL 0.9% 1,000 ML IV SCH ×2 (00:53→13:15)
[2021-10-17] MEDS: BLOOD GLUCOSE MONITORING 1 DEV DEV FS SCH ×4 (00:54→17:12)
[2021-10-17] MEDS: HYDRAGUARD CREAM TP SCH ×2 (00:54→13:50)
--- NOTE | 2021-10-17 02:00 | NUR ---
PATIENT HAVE A LOT OF BM WE GAVE A FULL BATH AND CHANGE THE WHOLE BED WOUND CARE WAS DONE AND REPOSITION UNTIL FELT COMFORTABLE VITALS SIGNS IN NORMALLIMITS TRACH CARE WAS DONE ALONG WITH ORAL CARE RECTALTUBE REPOSITION //DiCaprio RN
[2021-10-17] MEDS: methylPREDNISolone SS 40 MG/ML VIAL IVP SCH ×3 (05:47→20:37)
[2021-10-17 05:48] LABS: BASOPHILS % (AUTO) 0.1 % (0.0-2.0); EOSINOPHILS % (AUTO) 0.1 % (0.0-4.0); LYMPHOCYTES # (AUTO) 2.1 K/uL (2.0-11.5); LYMPHOCYTES % (AUTO) 13.1 % (20.5-51.1); MEAN CORPUSCULAR HEMOGLOBIN 31 pg (27-31); MEAN CORPUSCULAR HGB CONC 32 g/dL (33-37); MEAN CORPUSCULAR VOLUME 97.4 fL (80-94); MONOCYTES # (AUTO) 0.8 K/uL (0.8-1.0); MONOCYTES % (AUTO) 5.2 % (1.7-9.3); NEUTROPHILS # (AUTO) 12.9 K/uL (1.8-7.7); NEUTROPHILS % (AUTO) 81.5 % (42.2-75.2); PLATELET COUNT (AUTO) 280 K/uL (140-450); RED BLOOD CELL COUNT(AUTO) 1.47 MIL/uL (4.20-6.10); RED CELL DISTRIBUTION WIDTH 15.9 % (11.6-13.7); WHITE BLOOD COUNT (AUTO) 15.8 K/uL (4.8-10.8)
[2021-10-17 06:05] LABS: HEMATOCRIT 14.3 % (36-52); HEMOGLOBIN 4.6 g/dL (12.0-18.0)
--- NOTE | 2021-10-17 06:34 | NUR ---
PATIENT ALERT O COMPLAINING OF PAIN VITALS SIGNS IN NORMAL LIMITS WE HAVE CRITICAL LAB HEMOGLOBIN 4.6 HEMATOCRIT 14.3 I CALL DOCTOR HUA AND INFORME ABOUT WE HAVE ORDER FOR BLOOD BUT WE DON HAVE BLOOD AVAILABLE ON THE BANK ALSO WE INFORMED THAT PATIENT IS POSITIVE FOR MRSA ON THE SPUTO AND NARES WE INITIATED THE PROTOCOLOG AND PATIENT IS ALL READY ON VANCOMYCIN //DiCaprio RN
--- NOTE | 2021-10-17 07:25 | NUR ---
RECEIVED REPORT FROM TOP COLLAR MAKER NURSE FOR CONTINUITY OF CARE. PT IS RESTING IN BED IN NO SIGN OF STRESS. PT IS ON A TRACH TO VENT AND THE SETTINGS ARE AC/PRVC FIO2 30%, VT 30, VT 450, RATE 18 AND PEEP 5. PT IS NPO SINCE LAST NIGHT AWAITING EGD PROCEDURE. PT HAS A RIGHT FEMORAL CENTRAL LINE 3 LUMEN RUNNING NS AT 80 ML/H. NJ AND RECTAL TUBE IS IN PLACE. PT HAS A SACRAL WOUND AND COCCYX. PT IS MRSA POSITIVE ON SPUTUM AND NARES. ALL SAFETY PRECAUTIONS ARE IN PLACE AND WILL CONTINUE TO MONITOR.
--- NOTE | 2021-10-17 08:15 | NUR ---
DR. GILLIAM CALLED VIA PHONE AND WAS INFORMED OF THE PT CONDITION. PT IS NPO AWAITING PROCEDURE. CONSENT HAS BEEN OBTAIN.
[2021-10-17] MEDS ORDERED: fentaNYL citrate 0.05 MG/ML VIAL ONE (09:10)
[2021-10-17] MEDS ORDERED: MIDAZOLAM 5 MG/5 ML VIAL ONE (09:10)
[2021-10-17] MEDS ORDERED: diphenhydrAMINE 50 MG/ML VIAL ONE (09:10)
--- NOTE | 2021-10-17 09:30 | NUR ---
DR. GILLIAM AT BEDSIDE ABOUT TO CONDUCT EGD PROCEDURE. WILL CONTINUE TO MONITOR.
[2021-10-17 09:58] LABS: ALBUMIN 1.8 g/dL (3.4-5.0); ANION GAP 9.3 (8-16); CARBON DIOXIDE 27.4 mmol/L (21-32); CREATININE 0.4 mg/dL (0.6-1.3); MAGNESIUM 1.7 mg/dL (1.8-2.4); POTASSIUM 3.7 mmol/L (3.5-5.1); TOTAL BILIRUBIN 0.4 mg/dL (0.0-1.0)
--- NOTE | 2021-10-17 10:00 | NUR ---
ALEYDA (GIRLFRIEND) CALLED VIA PHONE ASKING FOR INFORMATION AND IT WAS DENIES DUE TO HER NOT BEING ON PT CHART. ALEYDA WAS TOLD TO CALL FAMILY.
[2021-10-17] MEDS ORDERED: fentaNYL citrate 0.05 MG/ML VIAL IVP ONE (10:05)
[2021-10-17] MEDS ORDERED: MIDAZOLAM 2 MG/2 ML VIAL IVP ONE (10:05)
[2021-10-17] MEDS ORDERED: MAGNESIUM CITRATE 300 ML BTL PO SCH (10:10)
[2021-10-17] MEDS: CHLORHEXADINE GLUC 2% CLOTH TP SCH (10:30)
[2021-10-17] MEDS: MUPIROCIN CA NASAL 2% 1GM TUBE NS SCH (10:30)
--- NOTE | 2021-10-17 11:30 | NUR ---
DAUGHTER CALLED VIA PHONE ASKING FOR PT UPDATE. DAUGHTER WAS INFORMED ABOUT GIRLFRIEND CALLING AND NO INFORMATION WAS GIVEN. DAUGHTER REQUESTED NO INFORMATION BE GIVEN TO GIRLFRIEND.
[2021-10-17] MEDS: LACTULOSE 20 GM/30 ML UDC PO SCH ×2 (13:47→17:11)
[2021-10-17] MEDS: MENTHOL/ZINC OXIDE 113 GM TUBE TP SCH (13:52)
--- NOTE | 2021-10-17 14:04 | NUR ---
ANG CHUTE BOSS CALLED REGARDING PT CONDITION.
[2021-10-17] MEDS ORDERED: EPOETIN ALFA-EPBX 10,000 UNITS/ML VIAL SUBQ SCH (15:26)
[2021-10-17] MEDS: INSULIN LISPRO SLIDING SCALE 100 UNITS/ML VIAL SUBQ PRN (17:14)
--- NOTE | 2021-10-17 19:15 | NUR ---
ENDORSED CARE TO DISPENSING OPTICIAN APPRENTICE NURSE FOR CONTINUITY OF CARE.
--- NOTE | 2021-10-17 19:20 | NUR ---
RECEIVED REPORT FROM DAY SHIFT NURSE, ASSUMED CARE. PATIENT IN NO ACUTE DISTRESS NOTED, TRACH TO VENT WITH SETTINGS AC/PRVC, FIO2 30%, TV 450, RATE 18, PEEP 5, O2 SAT 100%. PATIENT AWAKE AOX2. RIGHT CENTRAL FEMORAL LINE RUNNING NS AT 80 ML/HR. NJ CATH IN PLACE DRAINING AT GRAVITY. PEG TUBE IN PLACE. ALL SAFETY MEASURES IN PLACE, WILL CONTINUE TO CLOSELY MONITOR AND FOLLOW POC.
[2021-10-17] MEDS: FLUCONAZOLE 200 MG/NS PREMIX 100 ML IV SCH (20:30)
[2021-10-17] MEDS: PANTOPRAZOLE 40 MG INJ VIAL IVP SCH (20:35)
--- NOTE | 2021-10-17 21:00 | NUR ---
2100 MEDICATIONS ADMINISTERED, PATIENT TOLERATED WELL. PATIENT HAD BM WITH BLACK TARRY STOOL NOTED, CLEANED AND REPOSITIONED PATIENT. ORAL VAP CARE RENDERED. ALL SAFETY MEASURES IN PLACE, WILL CONTINUE TO CLOSELY MONITOR AND FOLLOW POC.
--- NOTE | 2021-10-17 21:00 | NUR ---
RECTAL TUBE INSERTED AT THIS TIME, PATIENT OBSERVED TO HAVE WATERY BLACK STOOLS.
[2021-10-18] VITALS (26 sets, daily range): BP systolic 105–210; BP diastolic 28–138
[2021-10-18] MEDS: BLOOD GLUCOSE MONITORING 1 DEV DEV FS SCH ×4 (00:30→18:47)
--- NOTE | 2021-10-18 00:30 | NUR ---
1 UNIT OF PACKED RBC STARTED AT 0000, VSS WITHIN 15 AND 30 MINUTES AFTER START OF ADMINISTRATION. NO FEVER WITH TEMPERATURE 97.2 AND 97.5. NO SIGNS OF ACUTE DISTRESS NOTED, NO SOB NOTED, O2 SAT 100 %. NO HIVES OR SIGNS OF ADVERSE REACTION NOTED. WILL CONTINUE TO CLOSELY MONITOR AND FOLLOW POC.
[2021-10-18] MEDS: HYDRAGUARD CREAM TP SCH ×2 (01:00→13:26)
[2021-10-18] MEDS: NACL 0.9% 1,000 ML IV SCH ×2 (01:45→14:15)
--- NOTE | 2021-10-18 02:00 | NUR ---
UNIT OF PRBC CONTINUES TO RUN, PATIENT IN NO APPARENT ACUTE DISTRESS NOTED. VSS WITH NO TEMPERATURE AT THIS TIME. O2 SAT 100%. WILL CONTINUE TO CLOSELY MONITOR AND FOLLOW POC.
[2021-10-18] MEDS: VANCOMYCIN HCL 1.25 GM in DEXTROSE 5% 250 ML IV SCH ×2 (03:00→12:00)
--- NOTE | 2021-10-18 03:30 | NUR ---
1 UNIT OF PRBC ADMINISTERED AND COMPLETED AT 0315. NO SIGNS OF ACUTE DISTRESS NOTED, VSS, TEMPERATURE 97.0. NO SOB OR ADVERSE REACTION NOTED. PATIENT DENIES ANY PAIN. WILL CONTINUE TO CLOSELY MONITOR AND FOLLOW POC.
[2021-10-18 05:18] LABS: LYMPHOCYTES # (AUTO) 0.8 K/uL (2.0-11.5); MEAN CORPUSCULAR HEMOGLOBIN 30 pg (27-31); MEAN CORPUSCULAR HGB CONC 33 g/dL (33-37); MEAN CORPUSCULAR VOLUME 92.3 fL (80-94); MONOCYTES # (AUTO) 0.3 K/uL (0.8-1.0); MONOCYTES % (AUTO) 1.7 % (1.7-9.3); NEUTROPHILS # (AUTO) 14.9 K/uL (1.8-7.7); PLATELET COUNT (AUTO) 315 K/uL (140-450); RED CELL DISTRIBUTION WIDTH 18.7 % (11.6-13.7)
[2021-10-18 05:26] LABS: HEMATOCRIT 17.5 % (36-52); HEMOGLOBIN 5.7 g/dL (12.0-18.0)
[2021-10-18 05:28] LABS: ALBUMIN 1.9 g/dL (3.4-5.0); ANION GAP 10.6 (8-16); CARBON DIOXIDE 28.5 mmol/L (21-32); CREATININE 0.3 mg/dL (0.6-1.3); MAGNESIUM 1.9 mg/dL (1.8-2.4); POTASSIUM 3.1 mmol/L (3.5-5.1); TOTAL BILIRUBIN 0.4 mg/dL (0.0-1.0)
--- NOTE | 2021-10-18 05:30 | NUR ---
STOOL NOTED TO LEAK FROM PT RECTAL TUBE, CLEANED AND REPOSITIONED PATIENT. SACRUM WOUND CLEANED AND APPLIED HYDRAGUARD. NO DISTRESS AT THE MOMENT.
[2021-10-18 06:08] LABS: NEUTROPHILS % (AUTO) 93.3 % (42.2-75.2)
[2021-10-18] MEDS: PIPERACILLIN/TAZOBACTAM 3.375 GM in DEXTROSE 5% 50 ML IV SCH ×3 (06:48→18:47)
--- NOTE | 2021-10-18 07:10 | NUR ---
GAVE REPORT TO DAY SHIFT NURSE, ENDORSED CARE. PATIENT IN NO ACUTE DISTRESS.
--- NOTE | 2021-10-18 07:25 | NUR ---
RECEIVED REPORT FROM CABLE WEAVER NURSE FOR CONTINUITY OF CARE. PT IS RESTING IN BED IN NO SIGN OF STRESS. PT IS ON A TRACH TO VENT AND THE SETTINGS ARE AC/PRVC FIO2 30%, VT 450, RATE 18 AND PEEP 5. PT HAS A G TUBE IN PLACE WITH FEEDING AT 30ML/H WITH WATER FLUSHES OF 50ML Q4H. PT HAS A RIGHT FEMORAL CENTRAL LINE 3 LUMEN RUNNING NS AT 80 ML/H. NJ AND RECTAL TUBE IS IN PLACE. PT HAS A SACRAL WOUND AND COCCYX. PT IS MRSA POSITIVE ON SPUTUM AND NARES. ALL SAFETY PRECAUTIONS ARE IN PLACE AND WILL CONTINUE TO MONITOR.
--- NOTE | 2021-10-18 08:50 | NUR ---
STARTED INFUSING 1 UNIT OF PACKED RBC TO PT. WILL CONTINUE TO MONITOR.
[2021-10-18] MEDS: methylPREDNISolone SS 40 MG/ML VIAL IVP SCH ×2 (09:00→20:42)
[2021-10-18] MEDS: MUPIROCIN CA NASAL 2% 1GM TUBE NS SCH (09:00)
[2021-10-18] MEDS: CHLORHEXADINE GLUC 2% CLOTH TP SCH (09:00)
[2021-10-18] MEDS: LACTULOSE 20 GM/30 ML UDC PO SCH ×3 (09:00→17:00)
[2021-10-18] MEDS: PANTOPRAZOLE 40 MG INJ VIAL IVP SCH ×2 (09:00→20:42)
--- NOTE | 2021-10-18 09:20 | NUR ---
PT IS TOLERATING BLOOD TRANSFUSION, VS WNL AND NO SIGNED OF DISTRESS NOTED. WILL CONTINUE TO MONITOR.
--- NOTE | 2021-10-18 11:45 | NUR ---
ONE UNIT OF PACKED RBC GIVEN TO PT. PT TOLERATED WELL, VS WNL AND NO SIGN OF DISTRESS NOTED. WILL CONTINUE TO MONITOR.
[2021-10-18] MEDS: MENTHOL/ZINC OXIDE 113 GM TUBE TP SCH (13:26)
--- NOTE | 2021-10-18 14:31 | NUR ---
VANCOMYCIN THROUGH 19.1 PER LAB RESULTS. PHARMACY IS HOLDING MEDICATION AT THIS MOMENT.
[2021-10-18] MEDS: INSULIN LISPRO SLIDING SCALE 100 UNITS/ML VIAL SUBQ PRN (18:47)
--- NOTE | 2021-10-18 19:08 | NUR ---
ENDORSED CARE TO PEDIATRIC GENETICIST NURSE FOR CONTINUITY OF CARE.
[2021-10-18] MEDS: FLUCONAZOLE 200 MG/NS PREMIX 100 ML IV SCH (20:41)
[2021-10-19] VITALS (27 sets, daily range): BP systolic 65–187; BP diastolic 25–95
[2021-10-19] MEDS: BLOOD GLUCOSE MONITORING 1 DEV DEV FS SCH ×4 (00:06→18:00)
[2021-10-19] MEDS: VANCOMYCIN 1,000 MG in DEXTROSE 5% 250 ML IV SCH ×2 (00:09→12:00)
[2021-10-19] MEDS: PIPERACILLIN/TAZOBACTAM 3.375 GM in DEXTROSE 5% 50 ML IV SCH ×4 (00:10→18:00)
[2021-10-19] MEDS: NACL 0.9% 1,000 ML IV SCH ×2 (00:11→15:15)
[2021-10-19] MEDS: HYDRAGUARD CREAM TP SCH ×2 (00:11→13:00)
--- NOTE | 2021-10-19 02:37 | NUR ---
PATIENT SLEEPING AT THIS TIME VITALS SIGNS IN NORMAL LIMITS SR 86 ON MONITOR //DiCaprio RN
[2021-10-19] MEDS: INSULIN LISPRO SLIDING SCALE 100 UNITS/ML VIAL SUBQ PRN (04:56)
--- NOTE | 2021-10-19 07:15 | NUR ---
REPORT RECEIVED BY RNBYRON.
[2021-10-19 07:17] LABS: ANION GAP 13.5 (8-16); CARBON DIOXIDE 25.5 mmol/L (21-32); CREATININE 0.5 mg/dL (0.6-1.3)
--- NOTE | 2021-10-19 09:00 | NUR ---
PATIENT AWAKE AND ALERT. MOUTHING WORDS. MOVES ALL EXTREMITIES. RIGHT FEMORAL TLC WITH NS AT 80CC/HR. PROXIMAL AND DISTAL PORTS FLUSHED AND CAPPED. TRACH TO VENT AT AC/VC MODE FIO2 .26/VT 550/ RATE 18/PEEP 5. SA02 92% ANTERIOR/LATERAL WITH RHONCHI BILATERALLY. SUCTIONED SMALL AMOUNT OF SECRETIONS. ACTIVE BOWEL SOUNDS. ABDOMEN SOFT. G-TUBE IN PLACE WITH NO RISIDUAL. GLUCERNA AT 40CC/HR. LIQUID GREEN STOOLS WITH RECTAL TUBE IN PLACE. NJ WITH YELLOW URINE.
[2021-10-19] MEDS: methylPREDNISolone SS 40 MG/ML VIAL IVP SCH ×2 (09:34→20:52)
[2021-10-19] MEDS: PANTOPRAZOLE 40 MG INJ VIAL IVP SCH ×2 (09:34→20:52)
[2021-10-19] MEDS: CHLORHEXADINE GLUC 2% CLOTH TP SCH (09:35)
[2021-10-19] MEDS: LACTULOSE 20 GM/30 ML UDC PO SCH ×3 (09:35→17:00)
[2021-10-19] MEDS: MUPIROCIN CA NASAL 2% 1GM TUBE NS SCH (09:35)
[2021-10-19 10:19] LABS: EOSINOPHILS % (AUTO) 0.1 % (0.0-4.0); HEMATOCRIT 24.7 % (36-52); HEMOGLOBIN 8.1 g/dL (12.0-18.0); LYMPHOCYTES # (AUTO) 1.3 K/uL (2.0-11.5); LYMPHOCYTES % (AUTO) 6.6 % (20.5-51.1); MEAN CORPUSCULAR HEMOGLOBIN 30 pg (27-31); MEAN CORPUSCULAR HGB CONC 33 g/dL (33-37); MEAN CORPUSCULAR VOLUME 92.4 fL (80-94); MONOCYTES # (AUTO) 0.9 K/uL (0.8-1.0); NEUTROPHILS # (AUTO) 16.8 K/uL (1.8-7.7); NEUTROPHILS % (AUTO) 88.3 % (42.2-75.2); PLATELET COUNT (AUTO) 398 K/uL (140-450); RED BLOOD CELL COUNT(AUTO) 2.68 MIL/uL (4.20-6.10); RED CELL DISTRIBUTION WIDTH 18.2 % (11.6-13.7); WHITE BLOOD COUNT (AUTO) 19.1 K/uL (4.8-10.8)
[2021-10-19] MEDS: MENTHOL/ZINC OXIDE 113 GM TUBE TP SCH (13:00)
--- NOTE | 2021-10-19 15:58 | NUR ---
10/19/21 RD FOLLOW UP COMPLETED PLEASE REFER TO NUTRITION ASSESSMENT UNDER CARE ACTIVITY FOR ESTIMATED NUTRITIONAL NEEDS. 1. CONTINUE GLUCERNA 1.2 WITH A GOAL RATE OF 60 ML/HR -FWF: 100 ML Q6H OR PER MD -WILL PROVIDE 1728 KCAL AND 86.4 GM PROTEIN, MEETING 90% ESTIMATED KCALS AND 100% EST PROTEIN NEEDS PER DAY. 2. CONTINUE PROSOURCE 1XDAY PER RD PROTOCOL. 3. RD TO FOLLOW-UP 2-3 DAYS, HIGH RISK OANH TODD RD
--- NOTE | 2021-10-19 16:00 | NUR ---
INCREASED TF TO 50CC/HR. GOAL RATE OF 60CC/HR.
--- NOTE | 2021-10-19 19:24 | NUR ---
REPORT GIVEN TO CIGARETTE ROLLER RN, HEDY.
--- NOTE | 2021-10-19 19:30 | NUR ---
RECEIVED REPORT FROM RN DAYSHIFT NURSE AT BEDSIDE FOR CONTINUITY OF CARE. PT IS AOX 2-3 HE IS ALERT HE HAS A TRACH TO VENT FIO2 26% VT 450 RR 18 PEEP 5. HE HAS A RIGHT FEMORAL TRIPLE LINE RUNNING NORMAL SALINE AT 80MLS/HR. PT ALSO HAS A NJ CATHETER AND A RECTAL TUBE. HE IS SITTING UP IN BED HOB ELEVATED 45% HE HAS A G TUBE RUNNING GLUCERNA 1.2 RUNNING AT 50 MLS/HR. ALL CONTACT AND UNIVERSAL FALLS PRECAUTIONS IN PLACE.
[2021-10-19] MEDS: FLUCONAZOLE 200 MG/NS PREMIX 100 ML IV SCH (20:51)
--- NOTE | 2021-10-19 21:00 | NUR ---
PT WAS GIVEN ORDERED DIFLUCAN IV ABT WELL IVP PROTONIX AND SOLUMEDROL. EDUCATION PROVIDED FOR MEDICATION, PT NODDED IN UNDERSTANDING. ALL ORDERED PRECAUTIONS IN PLACE.
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
[2021-10-20] VITALS (15 sets, daily range): BP systolic 131–182; BP diastolic 49–99
[2021-10-20] MEDS: BLOOD GLUCOSE MONITORING 1 DEV DEV FS SCH ×5 (00:17→22:49)
[2021-10-20] MEDS: PIPERACILLIN/TAZOBACTAM 3.375 GM in DEXTROSE 5% 50 ML IV SCH ×5 (00:17→23:36)
[2021-10-20] MEDS: INSULIN LISPRO SLIDING SCALE 100 UNITS/ML VIAL SUBQ PRN ×5 (00:18→22:50)
[2021-10-20] MEDS ORDERED: carvediloL 6.25 MG TAB PO ONE (00:25)
--- NOTE | 2021-10-20 00:27 | NUR ---
PAGED MD BUCKLEY REGARDING PT ELEVATED B/P. B/P HAD SPIKED UP TO 190'S THEN BACK DOWN B/P NOW 166/86, NEW ORDER NOTED FOR COREG 6.25 NOW AND SCHEDULED BID. PT FINGERSTICK IS 182, HE WAS GIVEN 2 UNITS OF HUMALOG COVERAGE. ZOSYN HUNG AND RUNNING ORDERED.
[2021-10-20] MEDS: HYDRAGUARD CREAM TP SCH ×2 (01:03→13:00)
[2021-10-20] MEDS: VANCOMYCIN 1,000 MG in DEXTROSE 5% 250 ML IV SCH ×2 (01:03→12:00)
--- NOTE | 2021-10-20 02:55 | NUR ---
B/P STARING TO CLIMB AGAIN. SBP REACHED 170, WILL HAVE OUTSOLE ROUNDER MD PAGED FOR PRN ORDERS.
--- NOTE | 2021-10-20 03:00 | NUR ---
CHANGED CALLED BACK NEW PRN ORDER FOR HYDRALAZINE IVP FOR SBP OVER 170. WILL CONTINUE TO MONITOR B/P.
[2021-10-20] MEDS: NACL 0.9% 1,000 ML IV SCH (03:51)
[2021-10-20 05:49] LABS: CARBON DIOXIDE 27.4 mmol/L (21-32); CREATININE 0.5 mg/dL (0.6-1.3); POTASSIUM 3.4 mmol/L (3.5-5.1)
[2021-10-20 05:50] LABS: BASOPHILS % (AUTO) 0.1 % (0.0-2.0); HEMATOCRIT 23.9 % (36-52); HEMOGLOBIN 7.8 g/dL (12.0-18.0); LYMPHOCYTES # (AUTO) 0.3 K/uL (2.0-11.5); LYMPHOCYTES % (AUTO) 2.4 % (20.5-51.1); MEAN CORPUSCULAR HEMOGLOBIN 31 pg (27-31); MEAN CORPUSCULAR HGB CONC 33 g/dL (33-37); MEAN CORPUSCULAR VOLUME 93.4 fL (80-94); MONOCYTES # (AUTO) 0.2 K/uL (0.8-1.0); MONOCYTES % (AUTO) 1.3 % (1.7-9.3); NEUTROPHILS # (AUTO) 13.2 K/uL (1.8-7.7); NEUTROPHILS % (AUTO) 96.2 % (42.2-75.2); PLATELET COUNT (AUTO) 412 K/uL (140-450); RED BLOOD CELL COUNT(AUTO) 2.56 MIL/uL (4.20-6.10); RED CELL DISTRIBUTION WIDTH 19.3 % (11.6-13.7); WHITE BLOOD COUNT (AUTO) 13.8 K/uL (4.8-10.8)
--- NOTE | 2021-10-20 06:00 | NUR ---
PT WAS CLEANED, TURNED AND REPOSITIONED IN BED. ZOSYN HUNG ORDERED. LAST FINGERSTICK IS 211 , PT GIVEN 4 UNITS OF HUMALOG COVERAGE. ALL ORDERED PRECAUTIONS IN PLACE.
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
[2021-10-20] MEDS: MUPIROCIN CA NASAL 2% 1GM TUBE NS SCH (09:01)
[2021-10-20] MEDS: LACTULOSE 20 GM/30 ML UDC PO SCH (09:01)
[2021-10-20] MEDS: methylPREDNISolone SS 40 MG/ML VIAL IVP SCH ×2 (09:01→12:50)
[2021-10-20] MEDS: carvediloL 6.25 MG TAB PO SCH ×2 (09:01→21:33)
[2021-10-20] MEDS: PANTOPRAZOLE 40 MG INJ VIAL IVP SCH (09:01)
[2021-10-20] MEDS: CHLORHEXADINE GLUC 2% CLOTH TP SCH (09:02)
--- NOTE | 2021-10-20 09:33 | NUR ---
TRANSFERRED PATIENT TO [facility] 127-B ON VENTILATOR REMOVED OXYGEN SUPPLY LINE FROM WALL 50 PSI RECONNECTED TO E-TANK WITH ADEQUATE PSI TOLERATED TRANSPORT WELL WITHOUT ADVERSE REACTIONS NOTED SATURATION 95%
--- NOTE | 2021-10-20 09:40 | NUR ---
ENDORSED CARE TO MARIE WOODS FOR CONTINUITY OF CARE VIA PHONE.
--- NOTE | 2021-10-20 09:50 | NUR ---
TRANSPORTED PT VIA GURNEY WITH RT AND ANOTHER NR.
--- NOTE | 2021-10-20 10:00 | NUR ---
RECEIVED PT FROM ICU7 TO RM 127A. PT AWAKE AOX4 BUT APHASIC DUE TO TRACH TO VENT. BREATHING IS EVEN AND UNLABORED. NO SIGNS OF DISTRESS NOTED. WILL CONNECT TO GTUBE FEEDING AND IV FLUIDS . PT IS STABLE.
--- NOTE | 2021-10-20 12:30 | NUR ---
BREATHING IS EVEN AND UNLABORED. NO SIGNS OF DISTRESS NOTED. WILL CONNECT TO GTUBE FEEDING AND IV FLUIDS . PT IS STABLE.
[2021-10-20] MEDS: MENTHOL/ZINC OXIDE 113 GM TUBE TP SCH (13:00)
[2021-10-20] MEDS: hydroCHLOROthiazide 25 MG TAB PO SCH (17:57)
[2021-10-20] MEDS: lisinopriL 10 MG TAB PO SCH (17:57)
--- NOTE | 2021-10-20 18:30 | NUR ---
BP OVER 160. GAVE BP MEDS PER MD ORDER. WILL ASSESS LATER. BREATHING IS EVEN AND UNLABORED. NO SIGNS OF DISTRESS NOTED. . PT IS STABLE.
--- NOTE | 2021-10-20 19:01 | NUR ---
ENDORSED TO FOOD AND BEVERAGE COORDINATOR NURSE FOR CONTINUITY OF CARE.
[2021-10-20] MEDS: FLUCONAZOLE 200 MG/NS PREMIX 100 ML IV SCH (21:25)
[2021-10-21] MEDS: VANCOMYCIN 1,000 MG in DEXTROSE 5% 250 ML IV SCH ×2 (01:00→12:59)
[2021-10-21] MEDS: HYDRAGUARD CREAM TP SCH ×2 (01:40→13:00)
[2021-10-21 04:32] VITALS: BP 142/80
[2021-10-21] MEDS: NACL 0.9% 1,000 ML IV SCH (04:33)
[2021-10-21] MEDS: BLOOD GLUCOSE MONITORING 1 DEV DEV FS SCH ×3 (05:39→18:31)
[2021-10-21] MEDS: PIPERACILLIN/TAZOBACTAM 3.375 GM in DEXTROSE 5% 50 ML IV SCH ×3 (05:39→17:48)
[2021-10-21 06:12] LABS: BASOPHILS % (AUTO) 0.2 % (0.0-2.0); EOSINOPHILS # (AUTO) 0.2 K/uL (0-0.4); EOSINOPHILS % (AUTO) 1.3 % (0.0-4.0); HEMATOCRIT 26.1 % (36-52); HEMOGLOBIN 8.5 g/dL (12.0-18.0); LYMPHOCYTES # (AUTO) 0.8 K/uL (2.0-11.5); LYMPHOCYTES % (AUTO) 5.2 % (20.5-51.1); MEAN CORPUSCULAR HEMOGLOBIN 31 pg (27-31); MEAN CORPUSCULAR HGB CONC 33 g/dL (33-37); MEAN CORPUSCULAR VOLUME 95.1 fL (80-94); MONOCYTES # (AUTO) 0.5 K/uL (0.8-1.0); MONOCYTES % (AUTO) 3.6 % (1.7-9.3); NEUTROPHILS % (AUTO) 89.7 % (42.2-75.2); PLATELET COUNT (AUTO) 411 K/uL (140-450); RED BLOOD CELL COUNT(AUTO) 2.75 MIL/uL (4.20-6.10); RED CELL DISTRIBUTION WIDTH 23.3 % (11.6-13.7); WHITE BLOOD COUNT (AUTO) 14.5 K/uL (4.8-10.8)
[2021-10-21 06:25] LABS: ANION GAP 12.6 (8-16); CARBON DIOXIDE 27.1 mmol/L (21-32); CREATININE 0.5 mg/dL (0.6-1.3); POTASSIUM 3.7 mmol/L (3.5-5.1)
--- NOTE | 2021-10-21 07:30 | NUR ---
RECEIVED BEDSIDE REPORT FROM FOOD PREPARATION SUPERVISOR NURSE. PT AWAKE AOX4 BUT APHASIC DUE TO TRACH TO VENT. BREATHING IS EVEN AND UNLABORED. NO SIGNS OF DISTRESS NOTED. GTUBE FEEDING AND IV FLUIDS . PT IS STABLE.
[2021-10-21 08:00] VITALS: BP 174/51
[2021-10-21] MEDS: carvediloL 6.25 MG TAB PO SCH ×2 (09:47→21:35)
[2021-10-21] MEDS: methylPREDNISolone SS 40 MG/ML VIAL IVP SCH (09:47)
[2021-10-21] MEDS: MUPIROCIN CA NASAL 2% 1GM TUBE NS SCH (09:47)
[2021-10-21] MEDS: lisinopriL 10 MG TAB PO SCH (09:48)
[2021-10-21] MEDS: hydroCHLOROthiazide 25 MG TAB PO SCH (09:48)
--- NOTE | 2021-10-21 09:50 | NUR ---
WOUND CARE RE-EVALUATION NOTE: SKIN ASSESSMENT DONE WITH PRIMARY RN , NO NEW SKIN BREAKS, PT. WITH RECTAL TUBE FOR LOOSE WATERING STOOL. PT. WITH EYES CONTACT, LIPS READING FOR COMMUNICATION. POC DISCUSSED WITH PRIMARY RN. INTEGUMENTARY: -TRACH AND PEG PER-STOMA SKIN DRY AND CLEAN -MOISTURE ASSOCIATED DERMATITIS TO SCROTAL AND ZHANG-ANAL, SKIN REDNESS IMPROVING, INTACT -PRESSURE INJURY STAGE 3 TO RIGHT BUTTOCK 3X2.5CM SUPERFICIAL DEPTH,WOUND BEDS ARE MOIST, NO ODOR, ZHANG-WOUND SKIN DRY AND INTACT -PRESSURE INJURY STAGE 3 TO LEFT BUTTOCK 1.8X2CM SUPERFICIAL DEPTH, BOTH WOUNDS IRREGULAR SHAPE, WOUND BEDS ARE MOIST, NO ODOR, ZHANG-WOUND SKIN DRY AND INTACT
[2021-10-21] MEDS: CHLORHEXADINE GLUC 2% CLOTH TP SCH (09:52)
[2021-10-21 12:00] VITALS: BP 164/77
[2021-10-21] MEDS: INSULIN LISPRO SLIDING SCALE 100 UNITS/ML VIAL SUBQ PRN ×2 (13:00→18:31)
[2021-10-21] MEDS: MENTHOL/ZINC OXIDE 113 GM TUBE TP SCH (13:00)
--- NOTE | 2021-10-21 13:32 | NUR ---
10/21/21 RD FOLLOW UP COMPLETED PLEASE REFER TO NUTRITION ASSESSMENT UNDER CARE ACTIVITY FOR ESTIMATED NUTRITIONAL NEEDS. 1. RECOMMEND GLUCERNA 1.2 WITH A NEW GOAL RATE OF 50 ML/HR -FWF: 150 ML Q6H OR PER MD 2. RECOMMEND JENSEN BID PER RD PROTOCOL -WITH JENSEN BID, PT WILL RECEIVE 1600 KCAL AND 77 GM PROTEIN, MEETING ESTIMATED NUTRITION NEEDS 3. RD TO FOLLOW-UP 3-5 DAYS, MODERATE RISK OANH TODD, RD
[2021-10-21] MEDS ORDERED: POTASSIUM CHLORIDE 20% 40 MEQ/15 ML UDC PO SCH (15:09)
[2021-10-21 16:00] VITALS: BP 171/81
[2021-10-21] MEDS: hydrALAZINE 10 MG TAB PO PRN (17:48)
--- NOTE | 2021-10-21 19:30 | NUR ---
ENDORSED PT TO GRAIN AND YEAST PLANTS SUPERVISOR NURSE FOR CONTINUITY OF CARE. POC DISCUSSED.
[2021-10-21] MEDS: FLUCONAZOLE 200 MG/NS PREMIX 100 ML IV SCH (21:35)
[2021-10-21 22:28] VITALS: BP 145/79
[2021-10-22] MEDS: PIPERACILLIN/TAZOBACTAM 3.375 GM in DEXTROSE 5% 50 ML IV SCH ×4 (00:33→18:58)
[2021-10-22] MEDS: VANCOMYCIN 1,000 MG in DEXTROSE 5% 250 ML IV SCH ×3 (00:33→23:47)
[2021-10-22] MEDS: HYDRAGUARD CREAM TP SCH ×2 (00:33→12:47)
[2021-10-22] MEDS: BLOOD GLUCOSE MONITORING 1 DEV DEV FS SCH ×5 (00:33→23:59)
[2021-10-22 04:27] VITALS: BP 132/81
[2021-10-22] MEDS: NACL 0.9% 1,000 ML IV SCH (04:28)
[2021-10-22 06:34] LABS: CARBON DIOXIDE 27.6 mmol/L (21-32); CREATININE 0.4 mg/dL (0.6-1.3); POTASSIUM 3.6 mmol/L (3.5-5.1)
[2021-10-22 06:45] LABS: BASOPHILS % (AUTO) 0.1 % (0.0-2.0); EOSINOPHILS % (AUTO) 0.1 % (0.0-4.0); HEMATOCRIT 27.1 % (36-52); HEMOGLOBIN 8.9 g/dL (12.0-18.0); LYMPHOCYTES # (AUTO) 0.6 K/uL (2.0-11.5); LYMPHOCYTES % (AUTO) 4.2 % (20.5-51.1); MEAN CORPUSCULAR HEMOGLOBIN 31 pg (27-31); MEAN CORPUSCULAR HGB CONC 33 g/dL (33-37); MEAN CORPUSCULAR VOLUME 92.9 fL (80-94); MONOCYTES # (AUTO) 0.5 K/uL (0.8-1.0); MONOCYTES % (AUTO) 3.7 % (1.7-9.3); NEUTROPHILS # (AUTO) 13.4 K/uL (1.8-7.7); NEUTROPHILS % (AUTO) 91.9 % (42.2-75.2); PLATELET COUNT (AUTO) 396 K/uL (140-450); RED BLOOD CELL COUNT(AUTO) 2.92 MIL/uL (4.20-6.10); RED CELL DISTRIBUTION WIDTH 22.4 % (11.6-13.7); WHITE BLOOD COUNT (AUTO) 14.6 K/uL (4.8-10.8)
--- NOTE | 2021-10-22 07:30 | NUR ---
RECEIVED BEDSIDE REPORT FROM SEALER AIRCRAFT NURSE. PT AWAKE AOX4 BUT APHASIC DUE TO TRACH TO VENT. BREATHING IS EVEN AND UNLABORED. NO SIGNS OF DISTRESS NOTED. GTUBE FEEDING AND IV FLUIDS . PT IS STABLE.
[2021-10-22 08:00] VITALS: BP 179/77
[2021-10-22] MEDS ORDERED: PRED10TA6 PO (09:14)
[2021-10-22] MEDS: carvediloL 6.25 MG TAB PO SCH ×2 (09:55→21:39)
[2021-10-22] MEDS: methylPREDNISolone SS 40 MG/ML VIAL IVP SCH (09:55)
[2021-10-22] MEDS: MUPIROCIN CA NASAL 2% 1GM TUBE NS SCH (09:55)
[2021-10-22] MEDS: lisinopriL 10 MG TAB PO SCH (09:56)
[2021-10-22] MEDS: hydroCHLOROthiazide 25 MG TAB PO SCH (09:56)
[2021-10-22] MEDS: CHLORHEXADINE GLUC 2% CLOTH TP SCH (09:56)
[2021-10-22] MEDS: hydrALAZINE 10 MG TAB PO PRN (11:07)
[2021-10-22 12:00] VITALS: BP 141/43
--- NOTE | 2021-10-22 12:00 | NUR ---
PT AWAKE AOX4 BUT APHASIC DUE TO TRACH TO VENT. BREATHING IS EVEN AND UNLABORED. NO SIGNS OF DISTRESS NOTED. GTUBE FEEDING AND IV FLUIDS . PT IS STABLE.
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
[2021-10-22] MEDS: INSULIN LISPRO SLIDING SCALE 100 UNITS/ML VIAL SUBQ PRN ×2 (12:46→18:59)
[2021-10-22] MEDS: MENTHOL/ZINC OXIDE 113 GM TUBE TP SCH (12:47)
[2021-10-22 16:00] VITALS: BP 143/60
--- NOTE | 2021-10-22 19:30 | NUR ---
ENDORSED TO IMPORT/EXPORT ANALYST NURSE FOR CONTINUITY OF CARE. POC DISCUSSED.
[2021-10-22 20:00] VITALS: BP 139/86
[2021-10-22] MEDS: FLUCONAZOLE 200 MG/NS PREMIX 100 ML IV SCH (21:39)
[2021-10-23] VITALS: BP 166/93
[2021-10-23] MEDS: HYDRAGUARD CREAM TP SCH ×2 (00:12→13:00)
[2021-10-23] MEDS: PIPERACILLIN/TAZOBACTAM 3.375 GM in DEXTROSE 5% 50 ML IV SCH ×4 (00:21→17:40)
[2021-10-23] MEDS: NACL 0.9% 1,000 ML IV SCH (03:42)
[2021-10-23 04:00] VITALS: BP 153/81
[2021-10-23] MEDS: BLOOD GLUCOSE MONITORING 1 DEV DEV FS SCH ×3 (05:45→17:43)
[2021-10-23] MEDS: INSULIN LISPRO SLIDING SCALE 100 UNITS/ML VIAL SUBQ PRN ×3 (05:53→17:54)
--- NOTE | 2021-10-23 07:40 | NUR ---
RECEIVED PT FROM NIGHT RN, PT IS ON A TRACH TO VENT FIO2 AT 26%, PEEP IS 5, TV IS 450, RATE IS 18, PT IS ALERT AND ORIENTED, BUT APHASIC DUE TO TRACH, BUT IS MOUTHING HIS NEEDS, NJ CATHETER IN PLACE, RECTAL TUBE INTACT, ON ISOLATION FOR MRSA OF NARES AND PSEUDOMONAS IN URINE, IV LINE NOTED ON THE RFA G. 22, PT HAS A G-TUBE IN PLACE WITH GLUCERNA 1.2 AT 50ML/HR, AND WATER FLUSHING OF 150 Q6H, NO SIGN OF DISTRESS NOTED AND WILL CONTINUE TO MONITOR PT.
[2021-10-23 08:00] VITALS: BP 176/40
[2021-10-23] MEDS: carvediloL 6.25 MG TAB PO SCH ×3 (09:00→20:42)
[2021-10-23] MEDS: methylPREDNISolone SS 40 MG/ML VIAL IVP SCH (09:26)
--- NOTE | 2021-10-23 09:26 | NUR ---
PT WAS GIVEN THE SCHEDULED AM MEDICATIONS NOW VIA G-TUBE, CARVEDILOL WAS WASTED DUE TO PILL WAS CRUSHED BUT NOT GIVEN, HEART RATE IS 57,, NO RESIDUAL NOTED, WILL CONTINUE TO BE MONITORED.
[2021-10-23] MEDS: hydroCHLOROthiazide 25 MG TAB PO SCH (09:27)
[2021-10-23] MEDS: lisinopriL 10 MG TAB PO SCH (09:27)
[2021-10-23] MEDS: MUPIROCIN CA NASAL 2% 1GM TUBE NS SCH (09:28)
[2021-10-23] MEDS: CHLORHEXADINE GLUC 2% CLOTH TP SCH (09:41)
--- NOTE | 2021-10-23 10:46 | NUR ---
DC PLANNING: RECEIVED A CALL FROM [facility] SPOKE WITH ROBIN STATED NEEDS LATEST COVID TEST. LACY MARI SPOKE WITH [facility] ACCEPTED PATIENT. AWAITING FOR FAMILY TO CHOOSE. CM TO FOLLOW
--- NOTE | 2021-10-23 11:02 | NUR ---
RAPID TEST SWAB WAS DONE TO PT NOW AND SAMPLE WILL BE SENT TO LAB.
[2021-10-23 12:00] VITALS: BP 158/65
--- NOTE | 2021-10-23 12:04 | NUR ---
PT WAS GIVEN IVPB ZOSYN NOW. GIRLFRIEND ON BEDSIDE.
[2021-10-23] MEDS: MENTHOL/ZINC OXIDE 113 GM TUBE TP SCH (13:00)
[2021-10-23] MEDS: VANCOMYCIN 1,000 MG in DEXTROSE 5% 250 ML IV SCH (13:58)
[2021-10-23 16:00] VITALS: BP 156/47
--- NOTE | 2021-10-23 17:40 | NUR ---
PT WAS GIVEN IVPB ZOSYN AND BLOOD GLUCOSE WAS CHECKED AND IS 202.
--- NOTE | 2021-10-23 17:54 | NUR ---
PT WAS GIVEN ISULIN 4 UNITS ON THE RT DELTOID FOR BLOOD GLUCOSE OF 202.
--- NOTE | 2021-10-23 19:07 | NUR ---
CALLED [facility] AT [phone] AND GAVE REPORT TO PEGGY JAMES REGARDING THE CARE MANAGEMENT FOR PT, PT WILL BE GOING TO 29-A AND ACCEPTING PHYSICIAN IS DR. DE LA CRUZ AND PT WILL BE WARRANT CLERK BY [facility] AT 2045H.
--- NOTE | 2021-10-23 19:15 | NUR ---
ENDORSED PT TO NIGHT RN FOR CONTINUITY OF THE DISCHARGE PROCESS.PT IS STABLE.
--- NOTE | 2021-10-23 19:26 | NUR ---
RECEIVED BEDSIDE REPORT FROM DAY RN, PT OBSERVED RESTING IN BED WITH GIRLFRIEND BY BEDSIDE. PT IS ON A TRACH TO VENT AC PRVC FIO2 AT 26%, PEEP IS 5, TV IS 450, RATE IS 18, PT IS ALERT AND ORIENTED, BUT APHASIC DUE TO TRACH, BUT ABLE TO MOUTH HIS NEEDS, NJ CATHETER IN PLACE, RECTAL TUBE INTACT, ON ISOLATION FOR MRSA OF NARES AND PSEUDOMONAS IN URINE, IV LINE NOTED ON THE RFA G. 22 TKO, PT HAS A G-TUBE IN PLACE WITH GLUCERNA 1.2 AT 50ML/HR, AND WATER FLUSHING OF 150 Q6H, POC REVIEWED WITH PT AND GIRLFRIEND. PT TO BE D/C TONIGHT TO [facility] WAITING FOR [facility] AS[facility] AT 2044. NO SIGN OF DISTRESS NOTED AND WILL CONTINUE TO MONITOR PT.
[2021-10-23 20:00] VITALS: BP 131/75
--- NOTE | 2021-10-23 20:00 | NUR ---
DISCHARGE PAPER WORK REVIEWED WITH PATIENT AND PATIENT'S GIRLFRIEND ALL QUESTIONS ANSWERED AND PATIENT'S GIRLFRIEND SIGN DISCHARGE PAPERS. RFA IV REMOVED CATH IS INTACT. WILL CONTINUE TO MONITOR
--- NOTE | 2021-10-23 20:42 | NUR ---
[facility] ADMIN FOR BP 131/75 64 BPM. PT WITH NO GASTRIC RESIDUALS NOTED. ORAL CARE PROVIDED PT TOLERATED WELL. DEEP SUCTION SMALL AMOUNT OF WHITE/CREAM SECRETIONS. ALL SAFETY MEASURES ARE IN PLACE. WILL CONTINUE TO MONITOR.
--- NOTE | 2021-10-23 20:58 | NUR ---
[facility] HERE TO TX PATIENT REPORT GIVEN TO JASON. PT BEING TX TO [facility] RM [address] RECE[address] DR DE LA CRUZ.
--- NOTE | 2021-10-23 21:15 | NUR ---
PATIENT LEFT UNIT VIA GURNEY WITH [facility] IN STABLE CONDITION.
== END 2021-10-23 21:15 | DRG 870 ==
LOC: MED 17:11 → MMU 21:49 → MIC 23:41 → MMU 10-20 10:00
PROVIDERS: ADMIT Hospitalist; ATTEND Hospitalist
PROC: 5A1955Z Respiratory Ventilation, Greater than 96 Consecutive Hours (ICD-10-PCS; principal; 2021-10-13)
PROC: B54BZZA Ultrasonography of Right Lower Extremity Veins, Guidance (ICD-10-PCS; 2021-10-13)
PROC: 06HY33Z Insertion of Infusion Device into Lower Vein, Percutaneous Approach (ICD-10-PCS; 2021-10-13)
PROC: 30233N1 Transfusion of Nonautologous Red Blood Cells into Peripheral Vein, Percutaneous Approach (ICD-10-PCS; 2021-10-14)
PROC: 0DJ08ZZ Inspection of Upper Intestinal Tract, Via Natural or Artificial Opening Endoscopic (ICD-10-PCS; 2021-10-17)
DX: A41.9 Sepsis, unspecified organism (principal); R65.21 Severe sepsis with septic shock; J96.21 Acute and chronic respiratory failure with hypoxia; J15.9 Unspecified bacterial pneumonia; E43 Unspecified severe protein-calorie malnutrition; G93.40 Encephalopathy, unspecified; N39.0 Urinary tract infection, site not specified; G12.21 Amyotrophic lateral sclerosis; Z99.11 Dependence on respirator [ventilator] status; K92.2 Gastrointestinal hemorrhage, unspecified; R13.10 Dysphagia, unspecified; E83.42 Hypomagnesemia; L89.151 Pressure ulcer of sacral region, stage 1; D64.9 Anemia, unspecified; Z20.822 Contact with and (suspected) exposure to COVID-19; Z93.0 Tracheostomy status; Z93.1 Gastrostomy status; Z79.82 Long term (current) use of aspirin; Z79.899 Other long term (current) drug therapy
CPT/HCPCS: 36415; 70450; 71045; 80048; 80053; 80202; 81001; 82272; 82948; 83605; 83735; 83880; 84484; 85025; 85045; 85730; 86886; 86900; 86901; 86920; 87040; 87070; 87081; 87086; 87186; 87205; 93005; 94003; 96361; 96365; 96368; 99291; C9113; J0696; J1200; J1450; J1644; J1720; J1815; J2250; J2270; J2405; J2543; J2920; J3010; J3370; J3475; J3480; J3490; J7030; J7060; P9016; Q0092; Q5106